=== PATIENT | female | born 1975 | race Caucasian/White ===

== ENCOUNTER → 2017-10-11 | Outpatient (CLI) | payer BC ==
--- NOTE | 2017-10-11 10:22 | MM ---
Reason for exam: screening (asymptomatic). Baseline mammogram. Physical Findings: Nurse did not find any significant physical abnormalities on exam. MG Screening Mammo w CAD Bilateral CC and MLO view(s) were taken. The breast tissue is heterogeneously dense. This may lower the sensitivity of mammography. There is no discrete abnormality. These results were verbally communicated with the patient and result sheet given to the patient on 10/11/17. ASSESSMENT: Negative, BI-RAD 1 RECOMMENDATION: Routine screening mammogram of both breasts in 1 year.
== END | disposition home or self-care (01) ==
LOC: RADMAMWWP 09:39
PROVIDERS: ATTEND Obstetrics & Gynecology
DX: Z12.31 Encounter for screening mammogram for malignant neoplasm of breast (principal)
CPT/HCPCS: 77067

== ENCOUNTER 2017-11-03 08:19 | Day surgery (SDC) | payer BC ==
[2017-11-01 08:48] VITALS: BMI 31.8
--- NOTE | 2017-11-02 16:31 | P.HPOB ---
History of Present Illness H&P Date: 11/02/17 Chief Complaint: Menorrhagia Maite is a 42-year-old female with heavy vaginal bleeding. Ultrasound and labs were reviewed present with the patient and they did reveal grossly thickened endometrium. She is scheduled for a D&C with NovaSure after a benign ECC was obtained. Risks/benefits/alternatives to this procedure were discussed with the patient in detail and all questions were answered for her prior to proceeding to the operating room. Risks did include but were not limited to bleeding, infection, damage to the bladder or bowel, nerve injuries as well as pain from the NovaSure. Thermal injuries. Past Medical History Past Medical History: No Reported History History of Any Multi-Drug Resistant Organisms: None Reported Past Surgical History: No Surgical Hx Reported Past Anesthesia/Blood Transfusion Reactions: No Reported Reaction Smoking Status: Current every day smoker - Past Family History Mother Additional Family Medical History / Comment(s): Stent in heart. Father Family Medical History: Neurologic Disorder Additional Family Medical History / Comment(s): Parkinson's Medications and Allergies Home Medications Medication Instructions Recorded Confirmed Type No Known Home Medications 11/01/17 11/01/17 History Allergies Allergy/AdvReac Type Severity Reaction Status Date / Time No Known Allergies Allergy Verified 11/01/17 08:49 Exam Osteopathic Statement: *. No significant issues noted on an osteopathic structural exam other than those noted in the History and Physical/Consult. - OBG Physical Exam Breast: both: normal (no masses) Abdomen: bowel sounds normal, no diffuse tenderness, no bruit present, no guarding noted, no hepatomegaly, no splenomegaly, no mass Vulva: both: normal Vagina: normal moisture, no discharge Cervix: no lesion, no discharge Uterus: normal size, normal contour Adnexa: both: normal Anus/Rectum: normal perianal skin, no rectal mass, no hemorrhoids, heme negative
[~2017-11-03 08:19] MED LIST: DEXAMETHASONE SOD PHOSPHATE 10 MG/ML 1 ML VIAL IV ONE; LACTATED RINGERS 1,000 ML IV SCH; ONDANSETRON 4 MG/2 ML VIAL IVP ONE; Pre Op ABX Message 1 EACH MISC MISCELLANE ONE
[2017-11-03] MEDS ORDERED: LIDOCAINE 1% 20 ML VIAL (10MG/ML) FOR IV START INTRADERMA ONE (08:59)
[2017-11-03] MEDS ORDERED: PROPOFOL 10 MG/ML 20 ML VIAL IV ONE (09:44)
[2017-11-03] MEDS ORDERED: KETOROLAC 30 MG/ML 1 ML VIAL ONE (09:44)
[2017-11-03] MEDS ORDERED: LIDOCAINE 1% INJ 10MG/ML (20 ML MDV) ONE (09:44)
[2017-11-03] MEDS ORDERED: fentaNYL (PF) 50 MCG/ML 2 ML AMP ONE (09:44)
[2017-11-03] MEDS ORDERED: MIDAZOLAM 2 MG/2 ML VIAL ONE (09:44)
--- NOTE | 2017-11-03 10:13 | P.OP ---
Date of Procedure: 11/03/17 Preoperative Diagnosis: Menorrhagia Postoperative Diagnosis: Same Procedure(s) Performed: D&C with hysteroscopy and NovaSure Anesthesia: MELANIE MCCLENDON Surgeon: Semaj Magaña Estimated Blood Loss (ml): 5 Pathology: other (Uterine curettings) Condition: stable Disposition: same day Operative Findings: Proliferative endometrium Description of Procedure: In preoperative discussing patient again that this procedure is not a type of sterilization and that she is still at risk of getting until her has a vasectomy. And even that is not guaranteed. She voices understanding and agrees to have the procedure despite not having her tubes tied and understands risks of bleeding abnormal placentation abnormal development or growth should she become following this procedure. Otherwise patient states the operating suite where a general anesthetic was found be adequate. She was prepped and draped in normal sterile fashion and placed in the dorsal lithotomy position. Initially a weighted speculum was inserted into the vagina and the anterior lip of cervix identified and grasped with an Allis clamp. Uterus was then sounded to 8 cm and the cervix was dilated. Camera was inserted proliferative endometrium was noted. Camera was removed and sharp curettings of the endometrium were obtained and sent to pathology for evaluation. Once this was completed NovaSure systems inserted with length of 4 and a width of 2.5 it was tested and passed the patency test. It was then enabled and turned on. The burn lasted 2 minutes. At the conclusion of that camera was reinserted and good burn was noted throughout the uterine lining. All instruments were then removed. Sponge, lap, needle counts were all correct 2. Patient was then taken to the recovery room in stable and satisfactory condition. Plan - Discharge Summary New Discharge Prescriptions: New Ibuprofen [Motrin] 600 mg PO Q6HR PRN #30 tab PRN Reason: Pain Discharge Medication List Ibuprofen [Motrin] 600 mg PO Q6HR PRN #30 tab 11/03/17 [Rx] Follow up Appointment(s)/Referral(s): Semaj Magaña DO [Doctor of Osteopathic Medicine] - 2 Weeks Activity/Diet/Wound Care/Special Instructions: No heavy lifting, limit stairs and driving and pelvic rest. If any high temperatures, heavy bleeding, or severe pain call my office Discharge Disposition: HOME SELF-CARE
[2017-11-03 10:28] VITALS: TEMP 97.3
[2017-11-03 10:35] VITALS: RESP 16
[2017-11-03] MEDS: HYDROmorphone 0.5 MG/0.5 ML SYRINGE IVP PRN ×2 (10:36→10:41)
[2017-11-03 12:03] VITALS: BP 153/65; PULSE 95
== END 2017-11-03 12:14 | disposition home or self-care (01) ==
LOC: OR 08:19
PROVIDERS: ATTEND Obstetrics & Gynecology
DX: N92.0 Excessive and frequent menstruation with regular cycle (principal); F17.210 Nicotine dependence, cigarettes, uncomplicated
CPT/HCPCS: 81025; 88305; 58563; J2250; J1100; J2405; J2001; J3010; J1885; J2704; J1170

== ENCOUNTER → 2024-03-01 | Outpatient (CLI) | payer BC ==
--- NOTE | 2024-03-05 12:11 | MM ---
Reason for Exam: Screening (asymptomatic). Last mammogram was performed 6 year(s) and 5 month(s) ago. Patient History: Menarche at age 12. First Full-Term at age 18. Perimenopausal. Last menstrual period: 09/09/2023 Risk Values: Johanne 5 year model risk: 0.7%. NCI Lifetime model risk: 6.5%. Prior Study Comparison: 10/11/2017 Bilateral Screening Mammogram, [facility]. Tissue Density: The breasts are heterogeneously dense, which may obscure small masses. Findings: Analyzed By CAD. Right breast: There is no suspicious group of microcalcifications or new suspicious mass. Left breast: There is no suspicious group of microcalcifications or new suspicious mass. Overall Assessment: Negative, BI-RAD 1 Management: Screening Mammogram of both breasts in [address] [facility] will attempt to contact patient to return for supplemental views and ultrasound if indicated. Patient should continue monthly self-breast exams. A clinical breast exam by your physician is recommended on an annual basis. This exam should not preclude additional follow-up of suspicious palpable abnormalities. Note on Johanne scores and lifetime risk: 1. A Johanne score greater than 3% is considered moderate risk. If this is the case, consider specialist referral to assess eligibility for a risk reducing agent. 2. If overall lifetime risk for the development of breast cancer is 20% or higher, the patient may qualify for future screening with alternating mammogram and breast MRI. [facility], , 03/05/2024 12:09 PM. Electronically signed and approved by: Isaac Rodriguez DO
== END | disposition home or self-care (01) ==
LOC: RADMAMWWP 16:38
PROVIDERS: ATTEND Family Medicine
DX: Z12.31 Encounter for screening mammogram for malignant neoplasm of breast (principal); R92.333 Mammographic heterogeneous density, bilateral breasts
CPT/HCPCS: 77067

== ENCOUNTER 2024-10-30 05:32 | Emergency (ER) | payer BC ==
--- NOTE | 2024-10-30 06:13 | ED ---
Lower Extremity Injury HPI - General Chief Complaint: Extremity Injury, Lower Stated Complaint: R ankle swelling Time Seen by Provider: 10/30/24 06:11 Source: patient, RN notes reviewed Mode of arrival: wheelchair Limitations: no limitations - History of Present Illness Initial Comments: 49-year-old female presented the ER for evaluation of right ankle pain and swelling. Patient states around 2 AM she started to experience a sharp ankle pain radiating up to right knee. She states it is limiting her ability to ambulate given the pain. Patient did take Motrin 800 and tramadol without relief of symptoms. She denies any known injuries or traumas. Denies paresthesias or calf tenderness. She reports this happen to left ankle recently and she was evaluated at orthopedics. - Related Data Previous Rx's Medication Instructions Recorded Ibuprofen [Motrin] 600 mg PO Q6HR PRN #30 tab 11/03/17 Allergies Allergy/AdvReac Type Severity Reaction Status Date / Time No Known Allergies Allergy Verified 10/30/24 05:35 Review of Systems ROS Statement: Those systems with pertinent positive or pertinent negative responses have been documented in the HPI. ROS Other: All systems not noted in ROS Statement are negative. Past Medical History Past Medical History: No Reported History History of Any Multi-Drug Resistant Organisms: None Reported Past Surgical History: No Surgical Hx Reported Past Anesthesia/Blood Transfusion Reactions: No Reported Reaction Past Psychological History: No Psychological Hx Reported Smoking Status: Never smoker Past Alcohol Use History: Occasional Past Drug Use History: Marijuana - Past Family History Mother Additional Family Medical History / Comment(s): Stent in heart. Father Family Medical History: Neurologic Disorder Additional Family Medical History / Comment(s): Parkinson's General Exam Limitations: no limitations General appearance: alert, in no apparent distress Respiratory exam: Present: normal lung sounds bilaterally. Absent: respiratory distress, wheezes, rales, rhonchi, stridor Cardiovascular Exam: Present: regular rate, normal rhythm, normal heart sounds. Absent: systolic murmur, diastolic murmur, rubs, gallop, clicks Extremities exam: Present: tenderness (Right ankle lateral malleolus there is overlying edema.), normal capillary refill (2+ right DP pulse), other (no calf tenderness) Neurological exam: Present: alert, oriented X3, CN II-XII intact Skin exam: Present: warm, dry, intact, normal color. Absent: rash Course Vital Signs 10/30/24 10/30/24 05:32 08:11 Temperature 97.9 F 97.8 F Pulse Rate 90 78 Respiratory 19 18 Rate Blood Pressure 176/96 124/78 O2 Sat by Pulse 100 98 Oximetry Medical Decision Making - Medical Decision Making Was pt. sent in by a medical professional or institution (, [facility], [facility], urgent care, hospital, or custodial...) When possible be specific @ -No Did you speak to anyone other than the patient for history (EMS, parent, family, police, friend...)? What history was obtained from this source @ -No Did you review nursing and triage notes (agree or disagree)? Why? @ -I reviewed and agree with nursing and triage notes Were old charts reviewed (outside hosp., previous admission, EMS record, old EKG, old radiological studies, urgent care reports/EKG's, custodial records)? Report findings @ -No old charts were reviewed Differential Diagnosis (chest pain, altered mental status, abdominal pain women, abdominal pain men, vaginal bleeding, weakness, fever, dyspnea, syncope, headache, dizziness, GI bleed, back pain, seizure, CVA, palpatations, mental hea lth, musculoskeletal)? @ -Differential Musculoskeletal: Muscular strain, contusion, ligament sprain, fracture, arthritis, septic arthritis, bursitis, cellulitis, muscle spasm, nerve compression, DVT, arterial occlusion, herpes zoster, electrolyte abnormality, tumor.... This is not meant to be in all inclusive list EKG interpreted by me (3pts min.). @ -None done X-rays interpreted by me (1pt min.). @ -Right ankle x-ray interpreted me negative for acute fractures or dislocations per CT interpreted by me (1pt min.). @ -None done U/S interpreted by me (1pt. min.). @ -None done What testing was considered but not performed or refused? (CT, X-rays, U/S, labs)? Why? @ -None What meds were considered but not given or refused? Why? @ -None Did you discuss the management of the patient with other professionals (professionals i.e. [facility] Scanlon, [facility], lab, RT, psych nurse, manager social media, retort or condenser press operator, teacher, conservation science officer, case mgr)? Give summary @ -No Was smoking cessation discussed for >3mins.? @ -No Was critical care preformed (if so, how long)? @ -No Were there social determinants of health that impacted care today? How? (Homelessness, low income, unemployed, alcoholism, drug addiction, transportation, low edu. Level, literacy, decrease access to med. care, skilled nursing, rehab)? @ -No Was there de-escalation of care discussed even if they declined (Discuss DNR or withdrawal of care, Hospice)? DNR status @ -No What co-morbidities impacted this encounter? (DM, HTN, Smoking, COPD, CAD, Cancer, CVA, ARF, Chemo, Hep., AIDS, mental health diagnosis, sleep apnea, morbid obesity)? @ -None Was patient admitted / discharged? Hospital course, mention meds given and route, prescriptions, significant lab abnormalities, going to OR and other pertinent info. @ -Discharge. 49-year-old female presented to ER for evaluation of right ankle pain. Vital signs stable. Patient is neurovascularly intact. Exquisite tenderness to right lateral malleolus with overlying edema. No contusion, rash or wound. X-rays obtained negative for acute process. Patient provided with p.o. ibuprofen for pain control. Upon reevaluation patient sleeping in exam room no signs of acute distress. Patient educated on x-rays findings. Conservative treatment options discussed. Marito wrap provided for compression and support. Patient is comfortable discharge at this time. Advise close follow- up with orthopedics if symptoms persist. Patient discharged stable condition. Patient verbally expressed understanding agree with care plan. Case discussed with ED attending, Dr. Girard Undiagnosed new problem with uncertain prognosis? @ -No Drug Therapy requiring intensive monitoring for toxicity (Heparin, Nitro, Insulin, Cardizem)? @ -No Were any procedures done? @ -No Diagnosis/symptom? @ -Ankle pain Acute, or Chronic, or Acute on Chronic? @ -Acute Uncomplicated (without systemic symptoms) or Complicated (systemic symptoms)? @ -Uncomplicated Side effects of treatment? @ -No Exacerbation, Progression, or Severe Exacerbation? @ -No Poses a threat to life or bodily function? How? (Chest pain, [place], NE, pneumonia, PE, COPD, DKA, ARF, appy, cholecystitis, CVA, Diverticulitis, Homicidal, Suicidal, threat to staff... and all critical care pts) @ -No - Radiology Data Radiology results: report reviewed, image reviewed Disposition Clinical Impression: Ankle pain Disposition: HOME SELF-CARE Condition: Stable Instructions (If sedation given, give patient instructions): Ankle Sprain (ED) Additional Instructions: Follow-up with orthopedics. Return to the ER for any new or worsening symptoms. Is patient prescribed a controlled substance at d/c from ED?: No Referrals: Alfonso Nugent MD [Primary Care Provider] - 1-2 days Atif Gastelum DO [Doctor of Osteopathic Medicine] - 1-2 days Time of Disposition: 08:04
[2024-10-30] MEDS: KETOROLAC 15 MG/ML 1 ML VIAL IM STA (06:17)
--- NOTE | 2024-10-30 06:35 | XR ---
EXAMINATION TYPE: XR ankle complete RT DATE OF EXAM: 10/30/2024 CLINICAL INDICATION: Female, 49 years old with history of pain and swelling, pain TECHNIQUE: Frontal, lateral and oblique images of the right ankle are obtained. COMPARISON: None. FINDINGS: There is no acute fracture/dislocation evident in the right ankle. The ankle mortise appe ars within normal limits. Moderate size inferior calcaneal spur is present. Mild to moderate spurrin g dorsal aspect of the distal navicular bone. The overlying soft tissue appears unremarkable. IMPRESSION: No acute findings in the right ankle. [facility], , 10/30/2024 6:32 AM
[2024-10-30 08:15] VITALS: BP 124/78; PULSE 78; RESP 18; TEMP 97.8
== END 2024-10-30 08:16 | disposition home or self-care (01) ==
LOC: EC 05:32
DX: M25.571 Pain in right ankle and joints of right foot (principal)
CPT/HCPCS: 73610; 99283; 96372; J1885